=== PATIENT | female | born 1945 | race Caucasian/White ===

== ENCOUNTER 2018-09-28 08:08 | Inpatient (IN) | payer MEDICARE, OTHER ==
[2018-09-28] VITALS (19 sets, daily range): BP systolic 80–123; BP diastolic 25–72
[~2018-09-28] VITALS: Ht 152.4 cm; Wt 59.1 kg
[2018-09-28 09:11] LABS: BASOPHILS # (AUTO) 0.1 X10'3 (0-0.2); BASOPHILS % (AUTO) 1.1 % (0-1); EOSINOPHILS # (AUTO) 0.8 X10'3 (0-0.9); EOSINOPHILS % (AUTO) 13.2 % (0-6); LYMPHOCYTES # (AUTO) 0.8 X10'3 (1.1-4.8); LYMPHOCYTES % (AUTO) 13.3 % (21-51); MEAN CORPUSCULAR HEMOGLOBIN 31.4 PG (27.0-31.0); MEAN PLATELET VOLUME 6.8 FL (7.4-10.4); MONOCYTES # (AUTO) 1.1 X10'3 (0-0.9); MONOCYTES % (AUTO) 17.7 % (2-12); NEUTROPHILS # (AUTO) 3.4 X10'3 (1.8-7.7); NEUTROPHILS % (AUTO) 54.7 % (42-75); PLATELET COUNT 253 X10'3 (140-440); RED BLOOD COUNT 1.79 X10'6 (4.20-5.60); RED CELL DISTRIBUTION WIDTH 20.9 % (11.5-14.5); WHITE BLOOD COUNT 6.2 X10'3 (4.5-11.0)
[2018-09-28 09:15] LABS: HEMOGLOBIN 5.6 g/dl (12.0-16.0)
[2018-09-28 09:18] LABS: ALANINE AMINOTRANSFERASE 10 U/L (12-78); ALBUMIN 1.8 G/DL (3.4-5.0); ALBUMIN/GLOBULIN RATIO 0.4 (1.1-1.5); ALKALINE PHOSPHATASE 112 IU/L (46-116); ANION GAP 2 (8-16); ASPARTATE AMINO TRANSFERASE 22 U/L (10-37); BILIRUBIN,TOTAL 1.1 MG/DL (0.1-1.0); BLOOD UREA NITROGEN 7 MG/DL (7-18); BUN/CREATININE RATIO 10.4 (6.6-38.0); CALCIUM 8.7 MG/DL (8.5-10.1); CHLORIDE 100 MMOL/L (99-107); CREATININE 0.67 MG/DL (0.40-0.90); GLUCOSE 78 MG/DL (70-104); POTASSIUM 4.4 MMOL/L (3.5-5.1); SODIUM 132 MMOL/L (135-145); TOTAL CARBON DIOXIDE 30.2 MMOL/L (24-32); eGFR 86 ML/MIN
[2018-09-28 09:31] LABS: PARTIAL THROMBOPLASTIN TIME 34 SECONDS (22-32)
[2018-09-28 10:23] LABS: ANISOCYTOSIS 3+; HYPOCHROMASIA 1+; PLATELET ESTIMATE NORMAL; POLYCHROMASIA 1+; STOMATOCYTES 1+
[2018-09-28] MEDS ORDERED: MIDAZolam 5mg/5ml vial ONE (10:28)
[2018-09-28] MEDS ORDERED: LIDOcaine Viscous 15ml cup ONE (10:28)
[2018-09-28] MEDS ORDERED: fentaNYL/PF 50MCG/1 ML 2ML syringe ONE (10:28)
[2018-09-28] MEDS ORDERED: mag hydrox/Alum hydrox/simeth 30ml oral suspension PO PRN (10:50)
[2018-09-28] MEDS ORDERED: magnesium hydroxide 30ml (MOM) UD suspension PO PRN (10:50)
[2018-09-28] MEDS ORDERED: ondansetron/PF 4mg/2ml inj IV PRN (10:50)
--- NOTE | 2018-09-28 12:05 | NUR ---
Patient in room [facility]TH[facility] 4020. I have received report from MARYANN JOHNSON and had the opportunity to ask questions and assume patient care.
[2018-09-28 12:49] LABS: MEAN CORPUSCULAR HEMOGLOBIN 31.1 PG (27.0-31.0); MEAN CORPUSCULAR HGB CONC 32.8 g/dL (33.0-36.5); MEAN CORPUSCULAR VOLUME 94.7 FL (78-98); MEAN PLATELET VOLUME 6.8 FL (7.4-10.4); PLATELET COUNT 248 X10'3 (140-440); RED BLOOD COUNT 1.77 X10'6 (4.20-5.60); RED CELL DISTRIBUTION WIDTH 20.3 % (11.5-14.5); WHITE BLOOD COUNT 6.3 X10'3 (4.5-11.0)
[2018-09-28 12:51] LABS: HEMOGLOBIN 5.5 g/dl (12.0-16.0)
[2018-09-28 12:52] LABS: HEMATOCRIT 16.7 % (35.0-45.0)
[2018-09-28] MEDS: pantoprazole 40MG/NS 100ML BAG 100 ML IV SCH ×3 (13:53→18:44)
[2018-09-28] MEDS: normal saline 1000ml 1,000 ML IV SCH ×2 (13:58→20:46)
[2018-09-28] MEDS ORDERED: MAGN400T6 PO (14:53)
[2018-09-28] MEDS ORDERED: DIPH25CA83 PO (14:53)
[2018-09-28] MEDS ORDERED: MAGN400O6 PO (14:53)
[2018-09-28] MEDS ORDERED: ONDA4TAB6 PO (14:53)
[2018-09-28] MEDS ORDERED: OMEP40CA37 PO (14:53)
[2018-09-28] MEDS ORDERED: TRAM50TA2 PO (14:53)
[2018-09-28] MEDS ORDERED: SUCR1ORA PO (14:53)
[2018-09-28] MEDS ORDERED: BENZ9GEL MM (14:53)
[2018-09-28] MEDS ORDERED: SPIR50TA5 PO (14:53)
[2018-09-28] MEDS ORDERED: MULT1TAB74 PO (14:53)
--- NOTE | 2018-09-28 14:56 | NUR ---
PAGER ID: [phone] MESSAGE: KEERTHI [id number] RE; GIVENLeslie [id number] I DID THE MED RED WHEN YOU GET A CHANCE TO REVIEW, THANKS. Addendum: 09/28/18 at 1735 by Keerthi Wilkerson RN AND FROM JAIME MARTÍNEZ
--- NOTE | 2018-09-28 18:00 | NUR ---
Problems reprioritized. Patient report given, questions answered & plan of care reviewed with ENA MARTÍNEZ.
[2018-09-28] MEDS ORDERED: benzocaine (Anbesol) 12ml bottle MM PRN (18:10)
[2018-09-28] MEDS: sucralfate 1gm/10ml UD suspension PO SCH (20:02)
[2018-09-28] MEDS: acetaminophen 325mg tablet PO PRN (20:04)
--- NOTE | 2018-09-28 20:46 | NUR ---
Dr. Minaya called to see why his patient did not return to the facility after receiving her blood transfusion he ordered. I explained to him that she was a full admit per Dr. 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 Minaya thought it might be. He verbalized a dissatisfaction with the communication to him and the facility that she came from in regards to the admit. I informed him that I would have the physician call him tomorrow if he desired it but he declined to have this done.
[2018-09-28 21:36] LABS: HEMATOCRIT 25.9 % (35.0-45.0); HEMOGLOBIN 8.7 g/dl (12.0-16.0); MEAN CORPUSCULAR HEMOGLOBIN 29.9 PG (27.0-31.0); MEAN CORPUSCULAR HGB CONC 33.5 g/dL (33.0-36.5); MEAN CORPUSCULAR VOLUME 89.1 FL (78-98); MEAN PLATELET VOLUME 6.8 FL (7.4-10.4); PLATELET COUNT 231 X10'3 (140-440); RED BLOOD COUNT 2.91 X10'6 (4.20-5.60); RED CELL DISTRIBUTION WIDTH 20.6 % (11.5-14.5); WHITE BLOOD COUNT 5.6 X10'3 (4.5-11.0)
--- NOTE | 2018-09-28 22:53 | NUR ---
PATIENT REPORT RECEIVED FROM SARAH MARTÍNEZ.
[2018-09-29] MEDS: normal saline 1000ml 1,000 ML IV SCH ×2 (00:04→09:29)
[2018-09-29] MEDS: pantoprazole 40MG/NS 100ML BAG 100 ML IV SCH ×5 (00:04→19:38)
[2018-09-29 06:00] VITALS: BP 136/46
--- NOTE | 2018-09-29 06:00 | NUR ---
Patient in room [facility]TH[facility] 4020. I have received report from ENA MARTÍNEZ and had the opportunity to ask questions and assume patient care.
--- NOTE | 2018-09-29 06:12 | NUR ---
PATIENT REPORT GIVEN TO SARAH MARTÍNEZ.
--- NOTE | 2018-09-29 06:45 | NUR ---
PATIENT REPORT GIVEN TO SARAH MARTÍNEZ.
[2018-09-29] MEDS: sucralfate 1gm/10ml UD suspension PO SCH ×4 (07:00→20:36)
[2018-09-29 07:09] LABS: ALBUMIN 1.8 G/DL (3.4-5.0); ANION GAP 3 (8-16); BLOOD UREA NITROGEN 6 MG/DL (7-18); BUN/CREATININE RATIO 8.5 (6.6-38.0); CALCIUM 8.2 MG/DL (8.5-10.1); CHLORIDE 103 MMOL/L (99-107); CREATININE 0.71 MG/DL (0.40-0.90); GLUCOSE 79 MG/DL (70-104); POTASSIUM 4.4 MMOL/L (3.5-5.1); SODIUM 135 MMOL/L (135-145); eGFR 81 ML/MIN
[2018-09-29 07:19] LABS: HEMATOCRIT 27.5 % (35.0-45.0); HEMOGLOBIN 9.2 g/dl (12.0-16.0); MEAN CORPUSCULAR HEMOGLOBIN 29.6 PG (27.0-31.0); MEAN CORPUSCULAR HGB CONC 33.6 g/dL (33.0-36.5); MEAN CORPUSCULAR VOLUME 88.2 FL (78-98); MEAN PLATELET VOLUME 6.7 FL (7.4-10.4); PLATELET COUNT 241 X10'3 (140-440); RED BLOOD COUNT 3.12 X10'6 (4.20-5.60); RED CELL DISTRIBUTION WIDTH 20.5 % (11.5-14.5); WHITE BLOOD COUNT 6.5 X10'3 (4.5-11.0)
[2018-09-29] MEDS: magnesium oxide 400mg tablet PO SCH (07:27)
[2018-09-29] MEDS: multivitamins, therapeutics tablet PO SCH (07:27)
[2018-09-29] MEDS: spironolactone 50 MG tablet PO SCH (07:27)
[2018-09-29] MEDS: acetaminophen 325mg tablet PO PRN ×3 (07:29→20:17)
[2018-09-29] MEDS ORDERED: non-formulary drug (Omeprazole (Prilosec) 1 CAP) PO SCH (08:00)
[2018-09-29 10:00] VITALS: BP 141/48
--- NOTE | 2018-09-29 15:01 | NUR ---
Malnutrition consult: Pt seen at bedside reports low PO intake r/t multiple mouth sores that she's had for a few weeks. Pt unsure of cause of mouth sores. Pt reports UBW 140#, unsure if wt loss has occurred or when she last weighed that. Current documented wt is 130# however unreliable as it is a pt stated wt. Pt with no visible fat/muscle wasting. Pt with no edema or decrease in muscle strength. Pt currently does not meet criteria for malnutrition. Pt with no food preferences at this time however requests no spicy or citrus food, d/w dietary caution of citrus and spicy food while pt with mouth sores. Pt denied ONS at this time but agreeable to chocolate Ensure pudding BIDLD and to trial strawberry/banana smoothie with dinner tonight, dietary notified. Tom FU regarding medication to subside pain from mouth sores such as Magic Mouthwash, d/w RN. JOSEFA contact information provided to pt. Will continue to follow. Addendum: 09/29/18 at [address]ña RD Amended: Links added.
[2018-09-29 18:00] VITALS: BP 116/50
--- NOTE | 2018-09-29 18:10 | NUR ---
Problems reprioritized. Patient report given, questions answered & plan of care reviewed with DENISHA MARTÍNEZ.
--- NOTE | 2018-09-29 18:50 | NUR ---
RC'D VERBAL REPORT FROM SARAH MARTÍNEZ AND ASSUMED CARE OF PATIENT.
[2018-09-29 22:00] VITALS: BP 128/52
[2018-09-29] MEDS ORDERED: traMADol 50MG tablet PO PRN (23:00)
[2018-09-29] MEDS: traMADol 50MG tablet PO PRN (23:19)
[2018-09-30] MEDS: pantoprazole 40MG/NS 100ML BAG 100 ML IV SCH ×2 (01:28→06:34)
[2018-09-30 06:00] VITALS: BP 134/53
--- NOTE | 2018-09-30 06:11 | NUR ---
RECEIVED REPORT FROM MAURICIO DENNY
[2018-09-30] MEDS: traMADol 50MG tablet PO PRN (06:33)
--- NOTE | 2018-09-30 06:42 | NUR ---
VERBAL REPORT GIVEN TO SABRINA MARTÍNEZ
[2018-09-30 07:17] LABS: BASOPHILS % (AUTO) 0.5 % (0-1); EOSINOPHILS # (AUTO) 1.2 X10'3 (0-0.9); EOSINOPHILS % (AUTO) 14.2 % (0-6); HEMATOCRIT 28.1 % (35.0-45.0); HEMOGLOBIN 9.5 g/dl (12.0-16.0); LYMPHOCYTES # (AUTO) 0.7 X10'3 (1.1-4.8); MEAN CORPUSCULAR HEMOGLOBIN 29.9 PG (27.0-31.0); MEAN CORPUSCULAR HGB CONC 33.8 g/dL (33.0-36.5); MEAN CORPUSCULAR VOLUME 88.7 FL (78-98); MEAN PLATELET VOLUME 6.5 FL (7.4-10.4); MONOCYTES # (AUTO) 1.2 X10'3 (0-0.9); MONOCYTES % (AUTO) 13.7 % (2-12); NEUTROPHILS # (AUTO) 5.4 X10'3 (1.8-7.7); NEUTROPHILS % (AUTO) 63.6 % (42-75); PLATELET COUNT 252 X10'3 (140-440); RED BLOOD COUNT 3.16 X10'6 (4.20-5.60); RED CELL DISTRIBUTION WIDTH 20.4 % (11.5-14.5); WHITE BLOOD COUNT 8.5 X10'3 (4.5-11.0)
[2018-09-30 07:25] LABS: ALBUMIN 1.9 G/DL (3.4-5.0); ANION GAP 3 (8-16); BLOOD UREA NITROGEN 6 MG/DL (7-18); BUN/CREATININE RATIO 9.5 (6.6-38.0); CALCIUM 8.3 MG/DL (8.5-10.1); CHLORIDE 103 MMOL/L (99-107); CREATININE 0.63 MG/DL (0.40-0.90); GLUCOSE 76 MG/DL (70-104); SODIUM 134 MMOL/L (135-145); TOTAL CARBON DIOXIDE 28.5 MMOL/L (24-32); eGFR > 90 ML/MIN
[2018-09-30 07:43] LABS: ANISOCYTOSIS 3+; PLATELET ESTIMATE NORMAL
[2018-09-30 07:44] LABS: POIKILOCYTOSIS FEW; TARGET CELLS FEW
[2018-09-30] MEDS: sucralfate 1gm/10ml UD suspension PO SCH ×2 (08:16→11:24)
[2018-09-30] MEDS: multivitamins, therapeutics tablet PO SCH (08:18)
[2018-09-30] MEDS: spironolactone 50 MG tablet PO SCH (08:19)
[2018-09-30] MEDS: magnesium oxide 400mg tablet PO SCH (08:19)
[2018-09-30] MEDS ORDERED: [UNRECOGNIZED DRUG - OTHER] MM PRN (08:45)
--- NOTE | 2018-09-30 09:35 | NUR ---
took pic of pts left buttock, placed foam, currently cdi, continue to monitor
[2018-09-30 10:00] VITALS: BP 120/54
[2018-09-30] MEDS ORDERED: furosemide 40mg/4ml inj IV ONE (10:45)
--- NOTE | 2018-09-30 12:17 | NUR ---
GAVE REPORT TO MAURICIO MILLER AT [facility]
--- NOTE | 2018-09-30 13:25 | NUR ---
PT D/C WITH ALL BELONGINGS IN WHEELCHAIR ACCOMPANIED BY [facility] TO GO TO [facility]
[2018-09-30] MEDS ORDERED: pantoprazole 40mg Tablet.DR PO SCH (20:00)
[2018-10-02 17:02] LABS: OCCULT BLOOD STOOL POSITIVE (Neg)
== END 2018-09-30 13:19 | DRG 378 ==
LOC: ER 08:09 → ORTHO 4S 10:53
PROVIDERS: ADMIT Family Medicine; ATTEND Family Medicine
PROC: 0W3P8ZZ Control Bleeding in Gastrointestinal Tract, Via Natural or Artificial Opening Endoscopic (ICD-10-PCS; principal; 2018-09-28)
PROC: 30233N1 Transfusion of Nonautologous Red Blood Cells into Peripheral Vein, Percutaneous Approach (ICD-10-PCS; 2018-09-28)
DX: K31.811 Angiodysplasia of stomach and duodenum with bleeding (principal); D62 Acute posthemorrhagic anemia; E87.1 Hypo-osmolality and hyponatremia; K76.6 Portal hypertension; K21.9 Gastro-esophageal reflux disease without esophagitis; K22.2 Esophageal obstruction; K70.11 Alcoholic hepatitis with ascites; K74.60 Unspecified cirrhosis of liver; F32.9 Major depressive disorder, single episode, unspecified; F41.9 Anxiety disorder, unspecified; K52.9 Noninfective gastroenteritis and colitis, unspecified; Z66 Do not resuscitate; K31.89 Other diseases of stomach and duodenum; Z87.891 Personal history of nicotine dependence; Z98.51 Tubal ligation status
CPT/HCPCS: 36415; 36430; 71045; 80048; 80053; 82272; 85025; 85027; 85610; 85730; 86885; 86900; 86901; 86920; 87070; 93005; 97110; 97116; 97162; 99152; 99285; A4620; C9113; G0378; J1940; J2250; J3010; J7030; P9016